=== PATIENT | female | born 1945 | race Caucasian/White ===

== ENCOUNTER 2016-07-16 09:52 | Outpatient (CLI) ==
[2016-07-16 10:25] LABS: BASOPHILS % (AUTO) 0.4 % (0.0-3.0); EOSINOPHILS # (AUTO) 0.1 K/ul (0.0-0.7); EOSINOPHILS % (AUTO) 1.2 % (0.0-7.0); HEMOGLOBIN 12.2 g/dl (12.0-16.0); IMMATURE GRANULOCYTE % (AUTO) 0.5 % (0.0-5.0); LYMPHOCYTES # (AUTO) 1.4 K/uL (0.60-3.4); MEAN CORPUSCULAR HEMOGLOBIN 27.8 pg (27.0-31.0); MEAN CORPUSCULAR VOLUME 84.3 fl (81.0-99.0); MONOCYTES # (AUTO) 0.4 K/uL (0.4-2.0); MONOCYTES % (AUTO) 4.8 (0-10); NEUTROPHILS # (AUTO) 5.7 K/ul (2.0-6.9); NEUTROPHILS % (AUTO) 75.1; PLATELET COUNT 206 10^3/uL (140-440); RED BLOOD COUNT 4.39 10^6/ul (4.20-5.40); WHITE BLOOD COUNT 7.56 K/ul (4.6-10.2)
[2016-07-16 10:29] LABS: BILIRUBIN,URINE Negative (NEGATIVE); KETONES,URINE Negative (NEGATIVE); LEUKOCYTE ESTERASE ,URINE Trace (NEGATIVE); NITRITE,URINE Negative (NEGATIVE); PROTEIN,URINE Negative (NEGATIVE); URINE, BLOOD Negative (NEGATIVE)
[2016-07-16 10:32] LABS: ADD URINE MICROSCOPIC YES
[2016-07-16 10:33] LABS: BACTERIA,URINE TRACE (NOT PRESENT)
[2016-07-16 10:40] LABS: URIC ACID 6.9 mg/dL (2.4-6.0)
[2016-07-16 10:59] LABS: ERYTHROCYTE SEDIMENTATION RATE 16 mm/hr (0-20); ESR INTERNAL QC INTERNAL QC VALID
== END 2016-07-16 09:53 | disposition home or self-care (01) ==
LOC: LAB 09:52
PROVIDERS: ATTEND Podiatrist
DX: E10.9 Type 1 diabetes mellitus without complications (principal); G30.9 Alzheimer's disease, unspecified; F02.80 Dementia in other diseases classified elsewhere, unspecified severity, without behavioral disturbance, psychotic disturbance, mood disturbance, and anxiety
CPT/HCPCS: 36415; 80061; 81001; 82947; 83036; 84450; 84460; 84478; 84550; 85025; 85651

== ENCOUNTER 2017-01-04 10:13 | Emergency (ER) | payer OTHER ==
[2017-01-04] MEDS ORDERED: TETANUS DIPHTHERIA TOXOIDS IM ONE (10:18)
[2017-01-04 10:20] VITALS: BP 155/77; TEMP 98.8; BMI 33.2
--- NOTE | 2017-01-04 10:53 | CT ---
EXAM: CT scan of the head without contrast HISTORY: Head injury TECHNIQUE: Imaging of the head was performed without contrast. 5 mm thin axial images and coronal and sagittal images were provided for interpretation. FINDINGS: Diffuse low density changes are seen throughout the supratentorial white matter. No acut e hemorrhages are seen. There is no mass effect. The basal cisterns are patent. The paranasal sin uses and mastoid air cells are clear. The calvarium appears normal. IMPRESSION: No acute traumatic abnormalities are seen. Chronic small vessel ischemic changes seen within the supratentorial white matter.
--- NOTE | 2017-01-04 11:02 | CT ---
EXAM: CT cervical spine without contrast HISTORY: Neck pain post fall TECHNIQUE: Multi-slice transaxial helical with coronal and sagittal reformatted views. COMPARISON: None FINDINGS: The intervertebral joint spaces are mildly narrowed diffusely. There is minimal anteroli sthesis of C2 on C3 of 1.7 mm. In addition, there is minimal anterolisthesis of C3 on C4 of 1.3 mm. The other cervical vertebrae maintain normal alignment. No acute fractures or lithesis are observed . The prevertebral soft tissues have normal width. The facet alignment is appropriate. No cervical ribs are appreciated. Segmental analysis: C2-C3: No significant disc herniation, central canal stenosis, or neural foramen stenosis. C3-C4: A minimal disc protrusion effaces the thecal sac without central canal or neural foramen sten osis. C4-C5: A minimal disc protrusion effaces the thecal sac. The central canal diameter is maintained. No neural foramen stenosis. C5-C6: A minimal disc protrusion effaces the thecal sac without central canal or neural foramen sten osis. C6-C7: A minimal disc protrusion effaces the thecal sac without central canal or neural foramen sten osis. C7-T1: Normal IMPRESSION: 1. No acute fracture or lithesis. 2. Minimal grade 1 anterolisthesis of C2 on C3 and C3 on C4. 3. No central canal or neural foramen stenosis.
--- NOTE | 2017-01-04 11:04 | ED.PDOC ---
General ED Provider: Dr. TIMUR WILLS-ER Chief Complaint: Head Laceration Stated Complaint: she fell and hurt her head Time Seen by Physician: 10:15 Mode of Arrival: Wheelchair Information Source: Patient, Family Exam Limitations: No limitations [facility] and Triage Documentation Reviewed and Agree: Yes Trauma/Injury Complaint Exam - Trauma Complaint/Exam Location of Pain or Injury: Reports: Scalp Mechanism of Injury: Reports: Fall Onset/Duration: 30 min Symptoms Are: Still present Timing of Treatment: Immediate Initial Severity: Mild Current Severity: Mild Character: Reports: Dull Alleviating: Reports: None Associated Signs and Symptoms: Reports: Bruising, Swelling. Denies: LOC, Confusion, Memory loss, Lethargy, Vomiting, Bleeding, Extremity disuse, Painful respiration, Hoarseness, Dysphagia, Hemoptysis, Significant blood loss : No Penetrating Injury Risk Factors: Reports: None Nexus Low Risk Criteria: No post-midline CS tender Glascow Coma Scale (see protocol): 15 Compartment Syndrome Risk Factors: Present: Pain Trauma Findings: Absent: [place] eyes, Hemotympanum, Nasal deformity, Dental tenderness, Dental injury, Dental malocclusion, Neck tenderness, Neck spasm, SubQ Air, Crepitus, Airway obstructed, Trachea displaced, Labored respirations, Decreased breath sounds, Muffled heart sounds, Weak pulses, Absent pulses, Abdominal distention, Pelvic tenderness, Pelvic instability, Perineal blood, Meatal blood, Abnormal rectal tone, Prostate pos. abnormal, Heme positive, Gross blood, Back tenderness, Back malalignment, Limited ROM, Agitated, Uncooperative Skin Findings: Present: Laceration, Ecchymosis, Hematoma Differential Diagnoses: Abrasion, Hematoma, Laceration Review of Systems - Review Of Systems Constitutional: Reports: No symptoms Eyes: Reports: No symptoms Ears, Nose, Mouth, Throat: Reports: No symptoms Respiratory: Reports: Other Cardiac: Reports: No symptoms GI: Reports: No symptoms : Reports: No symptoms Musculoskeletal: Reports: No symptoms Skin: Reports: No symptoms Neurological: Reports: No symptoms Endocrine: Reports: No symptoms Hematologic/Lymphatic: Reports: No symptoms All Other Systems: Reviewed and Negative Past Medical History - Past Medical History Previously Healthy: Yes Endocrine: Reports: Unknown Cardiovascular: Reports: Unknown Respiratory: Reports: Unknown Hematological: Reports: Unknown Gastrointestinal: Reports: Unknown Genitourinary: Reports: Unknown Neuro/Psych: Reports: Unknown Musculoskeletal: Reports: Unknown Cancer: Reports: Unknown Last Menstrual Period: none - Surgical History General Surgical History: Reports: Unknown - Family History Family History: Reports: Unknown - Social History Smoking Status: Never smoker Hx Substance Use: No Alcohol Screening: None - Immunizations Tetanus Shot up to Date: Yes Physical Exam - Physical Exam Appearance: Well-appearing Pain Distress: Mild Eyes: POLINA, EOMI, Conjunctiva clear ENT: Ears normal, Nose normal, Oropharynx normal Neck: Supple Respiratory: Airway patent, Breath sounds clear, Breath sounds equal, Respirations nonlabored Cardiovascular: RRR, Pulses normal, No rub, No murmur GI/: Soft, Nontender, No masses, Bowel sounds normal, No Organomegaly Musculoskeletal: Normal strength, ROM intact, No edema, No calf tenderness Skin: Warm, Dry, Normal color Neurological: Sensation intact, Motor intact, Reflexes intact, Cranial nerves intact, Alert, Oriented Psychiatric: Affect appropriate, Mood appropriate Interpretation - Radiology Interpretation Radiology Interpretation By: Radiologist Radiology Results: Negative Exam Interpreted: CT Scan Procedures - Laceration/Wound Repair No standard instances Wound Description: Linear Wound Length (cm): 1.5cm vertex of scalp Wound Explored: Clean Wound Irrigated: No Wound Prep: Hibiclens Wound Repaired With: Ludy Number of Halls: 2 Layer Closure?: No Sterile Dressing Applied?: Yes Splint Applied?: No Sling Applied?: No Critical Care Note - Critical Care Note Total Time (mins): 0 Course - Course Orders, Labs, Meds: Orders Category Date Time Status CT CERVICAL SPINE W/O CONTRAST Stat RADS 01/04/17 10:[address] HEAD W/O CONTRAST Stat RADS 01/04/17 10:18 Completed Vital Signs: Temp Pulse Resp BP Pulse Ox 01/04/17 10:13 98.8 F 76 18 155/77 H 98 Departure - Departure Time of Disposition: 11:05 Disposition: HOME SELF-CARE Discharge Problem: Scalp laceration Qualifiers: Encounter type: initial encounter Qualifier Code: (S01.01XA) Laceration without foreign body of scalp, initial encounter Instructions: Laceration (ED), Staple Care (ED) Condition: Good Pt referred to PMD for follow-up: Yes Additional Instructions: wound care--tylenol for pain--ludy out in 5-7 days--return prn Allergies/Adverse Reactions: Allergies No Known Allergies Allergy (Verified 01/04/17 10:20) Home Medications: Ambulatory Orders 1 [Unobtainable] 01/04/17 Disposition Discussed With: Patient, Family
== END 2017-01-04 11:18 | disposition home or self-care (01) ==
LOC: ED 10:13
DX: S01.01XA Laceration without foreign body of scalp, initial encounter (principal); W19.XXXA Unspecified fall, initial encounter
CPT/HCPCS: 99283

== ENCOUNTER 2017-01-16 10:25 | Outpatient (CLI) ==
[2017-01-16 13:16] LABS: BASOPHILS % (AUTO) 0.5 % (0.0-3.0); EOSINOPHILS # (AUTO) 0.1 K/ul (0.0-0.7); EOSINOPHILS % (AUTO) 1.4 % (0.0-7.0); HEMATOCRIT 34.6 % (37.0-47.0); HEMOGLOBIN 11.9 g/dl (12.0-16.0); IMMATURE GRANULOCYTE % (AUTO) 0.4 % (0.0-5.0); LYMPHOCYTES # (AUTO) 1.1 K/uL (0.60-3.4); LYMPHOCYTES % (AUTO) 19.4 (10.0-50.0); MEAN CORPUSCULAR HGB CONC 34.4 (31.8-35.4); MEAN CORPUSCULAR VOLUME 81.4 fl (81.0-99.0); MONOCYTES # (AUTO) 0.4 K/uL (0.4-2.0); MONOCYTES % (AUTO) 7.1 (0-10); NEUTROPHILS % (AUTO) 71.2; PLATELET COUNT 223 10^3/uL (140-440); RED BLOOD COUNT 4.25 10^6/ul (4.20-5.40); WHITE BLOOD COUNT 5.66 K/ul (4.6-10.2)
[2017-01-16 13:46] LABS: ALBUMIN/GLOBULIN RATIO 1.11; ANION GAP 16.9; BILIRUBIN,TOTAL 0.62 mg/dL (0.00-1.20); CALCIUM 10.3 mg/dL (8.2-10.2); CHOL/HDL RATIO 2.3 (4.5-5.5); CREATININE 1.55 mg/dL (0.60-1.30); POTASSIUM 3.9 mmol/L (3.5-5.10); TOTAL PROTEIN 7.6 g/dL (5.8-8.1)
== END 2017-01-16 10:26 | disposition home or self-care (01) ==
LOC: LAB 10:25
PROVIDERS: ATTEND Emergency Medicine
DX: E11.9 Type 2 diabetes mellitus without complications (principal); E78.5 Hyperlipidemia, unspecified; I10 Essential (primary) hypertension
CPT/HCPCS: 36415; 80053; 80061; 83036; 84443; 85025

== ENCOUNTER 2017-06-23 17:08 | Outpatient (CLI) | END 2017-06-23 17:09 | disposition home or self-care (01) | LOC: LAB 17:08 | PROVIDERS: ATTEND Emergency Medicine | DX: E78.5 Hyperlipidemia, unspecified (principal); E11.9 Type 2 diabetes mellitus without complications; G30.9 Alzheimer's disease, unspecified; F02.80 Dementia in other diseases classified elsewhere, unspecified severity, without behavioral disturbance, psychotic disturbance, mood disturbance, and anxiety; I10 Essential (primary) hypertension; Z79.4 Long term (current) use of insulin | CPT/HCPCS: 36415; 80053; 80061; 83036; 84443; 85025 ==

== ENCOUNTER 2017-10-20 15:13 | Inpatient (IN) ==
[2017-10-20 16:03] VITALS: BMI 30.9
[2017-10-20] MEDS ORDERED: TYLENOL PO PRN (16:45)
[2017-10-20] MEDS ORDERED: INSULIN DETEMIR 30 UNIT SQ SCH (17:00)
--- NOTE | 2017-10-20 17:25 | CT ---
EXAM: CT head without contrast HISTORY: Dizziness COMPARISON: CT head from 01/04/2017 TECHNIQUE: Helical axial CT of the head was performed without contrast. Coronal and sagittal reconstr uctions were performed. FINDINGS: Exam is stable. There is no acute intracranial abnormality. There is no hemorrhage, mass, midline wilma ft, abnormal extra-axial fluid collection, hydrocephalus or evolving ischemia. Redemonstrated are alethea ateral areas of low attenuation in the cortex of the anterior frontal lobes a bit more so on the righ t. This extends into the white matter as well. There is extremely advanced calcific atherosclerosis present. There is moderate atrophy and chronic small vessel ischemia in the white matter of both cer ebral hemispheres. Brain parenchyma, ventricles and sulci are otherwise normal. There are no acute calvarial lesions. Visualized orbits and globes are unremarkable. The mastoid ai r cells are fairly well opacified bilaterally. The visualized paranasal sinuses show no air-fluid lev els. IMPRESSION: 1. No acute intervening abnormality. Specifically there is no evolving ischemia or hemorrhage or ma ss. 2. Bifrontal low attenuation most consistent with prior infarcts or prior contusions in the bilatera l frontal lobes. This is stable. 3. Senescent changes as noted. 4. Chronic mastoiditis.
--- NOTE | 2017-10-20 17:34 | DI ---
EXAM: Single-view chest HISTORY: Cough COMPARISON: None. FINDINGS: The heart is normal in size. Atherosclerotic changes are seen involving the aortic arch. The lungs are well expanded and clear bilaterally. IMPRESSION: No evidence of active pulmonary disease
[2017-10-20] MEDS: SODIUM CHLORIDE 1,000 ML IV SCH (18:21)
[2017-10-20] MEDS: COZAAR PO SCH (20:38)
[2017-10-20] MEDS: CARDIZEM PO SCH (20:38)
[2017-10-20] MEDS ORDERED: NON-FORMULARY MEDICATION (Losartan Potassium [Losartan Potassium] 50 MG) PO SCH (21:00)
[2017-10-21] MEDS: HYDROCHLOROTHIAZIDE PO SCH (08:54)
[2017-10-21] MEDS: CARDIZEM PO SCH ×2 (08:54→20:39)
[2017-10-21] MEDS: NAMENDA PO SCH (08:55)
[2017-10-21] MEDS: TRIGLIDE PO SCH (08:55)
[2017-10-21] MEDS: CRESTOR PO SCH (08:55)
[2017-10-21] MEDS: COZAAR PO SCH ×2 (08:55→20:39)
[2017-10-21] MEDS: RIVASTIGMINE TD SCH (08:56)
[2017-10-21] MEDS ORDERED: FENOFIBRATE NANOCRYSTALLIZED 54 MG PO SCH (09:00)
[2017-10-21] MEDS ORDERED: NON-FORMULARY MEDICATION (Hydrochlorothiazide [Hydrochlorothiazide] 12.5 MG) PO SCH (09:00)
[2017-10-21] MEDS ORDERED: LEVEMIR SUBCUT SCH (09:00)
[2017-10-21] MEDS ORDERED: ROSUVASTATIN CALCIUM 20 MG PO SCH (09:00)
--- NOTE | 2017-10-21 11:06 | RS.PTINEVL ---
Subjective - Patient information Date of Evaluation: 10/21/17 Date of Arrival on Unit: 10/20/17 Admitted From:: Home Diagnosis: fall, dizziness, weakness Usual Living Arrangement: with daughter Home Environment: House, Stairs (few), Rail Medical History: CVA/TIA, Diabetes Medications: see chart Subjective Information/ Patient Comments:: pt states that she came in because the doctor wants to check on her legs. pt states she wants to get stronger and return to daughter's home to play with grandkids. - Level of function Prior to this admission, the patient could do the following:: Independent ADL's , Independent Ambulation Abilities prior to this admission: pt amb with rwx at home. Independent with all adl's, did a little cooking. Current Level of Function: Partially Dependent Current Equipment Used at Home: walker, glucometer, shower chair Interventions - Objective Patient Orientation: Person, Place, Time Current Interventions: IV's, Telemetry Range of Motion - ROM Right Upper Extremity AROM: WFL's Left Upper Extremity AROM: WFL's Right Lower Extremity AROM: WFL's Left Lower Extremity AROM: WFL's Muscle Strength - Muscle Strength Right Upper Extremity Strength: Mild Weakness (grossly 4/5) Left Upper Extremity Strength: Mild Weakness (grossly 4/5) Right Lower Extremity Strength: Mild Weakness (hip flex 4-/5, knee flex/ext 4-/5 , ankle DF/PF 3+/5) Left Lower Extremity Strength: Mild Weakness (hip flex 4-/5, knee flex/ext 4-/5 , ankle DF/PF 3+/5) Sensation - Sensation Right Upper Extremity Sensation: Intact/Normal Left Upper Extremity Sensation: Intact/Normal Right Lower Extremity Sensation: Intact/Normal Left Lower Extremity Sensation: Intact/Normal Palpation Palpation Findings: None/Normal Balance - Sitting Balance and Reactions Static Sitting Balance: Good Dynamic Sitting Balance: Fair - Standing Balance and Reactions Static Standing Balance: Fair Dynamic Standing Balance: Poor Standing Equilibrium Reactions: Delayed Left, Delayed Right Standing Protective Reactions: Delayed Left, Delayed Right - Comments Balance Assessment Comments: pt with increased lat sway, internal rotation with LLE Functional Mobility - Bed Mobility Rolling R/L: Supervision Supine to Sit: Supervision - Transfers Sit to Stand: CGA Stand to Sit: CGA - Safety Awareness Safety Awareness: Fair BALDEV INDEX SCORE: n/a Ambulation - Ambulation Assistive Device Used: Rolling Walker Orthotic/Prosthetic Device: No Distance: 100ft Assistance needed with Ambulation: CGA Quality of Ambulation: pt amb CGA x1 +1for IV pole Gait Deviations: Forward posture, Short stride, Deviates from path Ambulation Comments: pt with internal rotation LLE, with pronation B feet. Factors Affecting Ambulation: Decreased Balance, Weakness, Decreased Safety, Limited Endurance Treatment time - Time with patient Total treatment time: 25 Patient Education - Education Patient Education: Home Exercise Program, Education of Plan of Care Teaching Recipient: Patient Teaching Methods: Discussion (discussion regarding POC as well as safety with amb.) Assessment - Assessment Problem List:: Decreased level of function, Requires training/education, Decreased safety/Risk of falls, Weakness Rehab Potential: Good Further Therapy Indicated?: Yes Evaluation Complexity: HISTORY: Medium (DM, CVA, alzheimers), EXAM OF BODY SYSTEMS: Medium (strength, balance, posture, gait), CLINICAL PRESENTATION: Medium (evolving), CLINICAL DECISION MAKING: Medium Short Term Goals GOAL #1: pt independent with rolling and scooting up in bed Goal to be met by: 10/23/17 GOAL #2: pt transfer sup to/from sit to/from stand SBA Goal to be met by: 10/23/17 GOAL #3: pt amb with rwx 125ft with no LOB with SBA Goal to be met by: 10/23/17 [facility] Goals GOAL #1: pt transfer sup to/from sit to/from stand independently Goal to be met by: 10/26/17 GOAL #2: pt amb with rwx 150ft with no LOB with SBA to independent Goal to be met by: 10/26/17 GOAL #3: pt with BLE strength 4 to 4+/5 Goal to be met by: 10/26/17 Plan Plan of Care: Therapeutic EX, Therapeutic Activity Other:: gait training Frequency of Treatment: 1-2 X day, as tolerated Duration of Treatment: 6 days Anticipated Discharge Destination: Home Treatment Diagnosis (ICD 10 Codes): R26.81 balance impaired, R26.2 difficulty walking Has the Physician been added for Co-signature?: Yes
--- NOTE | 2017-10-21 11:20 | RS.OTINEVL ---
Subjective - Patient information Date of Evaluation: 10/21/17 Date of Arrival on Unit: 10/20/17 Admitted From:: Home Usual Living Arrangement: with daughter Living Arrangement Comments: Pt lives at home with her daughter. Pt uses a RW due to impaired balance and gait. Home Environment: House, Stairs (few), Rail Medical History: CVA/TIA, Diabetes Medical History Comments:: Glaucoma, falls, dizzy, alzheimers, kidney disease, gall bladder, hysterectomy, HTN, hypercholesterolemia, DMII Medications: see chart - Level of function Prior to this admission, the patient could do the following:: Independent ADL's , Independent Ambulation Abilities prior to this admission: Pt was living at her daughter's house, pt dresses herself. Pt does not drive. Pt does not cook anymore. Current Level of Function: Partially Dependent Current Equipment Used at Home: walker, glucometer, shower chair Functional Mobility BALDEV INDEX SCORE: . Additional Treatment Performed - Additional units charged ADL: 15 - Time with patient Total treatment time: 22 Activities Patient Interests:: Watching Television Patient Education Patient Education: Home Safety, Education of Plan of Care Teaching Recipient: Patient Teaching Methods: Discussion Assessment Problem List:: Decreased level of function, Requires training/education, Decreased safety/Risk of falls, Weakness Rehab Potential: Good Further Therapy Indicated?: Yes Evaluation Complexity: HISTORY: Low, EXAM OF BODY SYSTEMS: Low, CLINICAL DECISION MAKING: Low Short Term Goals - Goals GOAL 1: Pt to increase dyn. std. balance to F-/ G +. Goal to be met by: 10/28/17 GOAL 2: Pt to increase BUE strenght to 4+/5. Goal to be met by: 10/28/17 GOAL 3: Pt to increase activity tolerance to 15 minutes with rests PRN. Goal to be met by: 10/28/17 GOAL 4: Pt to be independent with home exercise program. Goal to be met by: 10/28/17 City [employer]anner Goals GOAL 1: Pt to increase dyn. std. balance to G. Goal to be met by: 11/04/17 GOAL 2: Pt to increase BUE strength to 5/5. Goal to be met by: 11/04/17 GOAL 3: Pt to increase activity tolerance to 20 minutes with rests PRN. Goal to be met by: 11/04/17 Plan Plan of Care: Therapeutic EX, Neuromuscular Re-Educ, Therapeutic Activity, Self- Care/Home Management Frequency of Treatment: 1-2 X day, as tolerated Duration of Treatment: 2 Weeks Anticipated Discharge Destination: Home Treatment Diagnosis (ICD 10 Codes): M82.81 Muscle weakness Has the Physician been added for Co-signature?: Yes
[2017-10-21] MEDS: SODIUM CHLORIDE 1,000 ML IV SCH (18:23)
[2017-10-21] MEDS: PROTONIX PO SCH (18:28)
--- NOTE | 2017-10-21 20:20 | CT ---
EXAM: CT scan abdomen pelvis without contrast HISTORY: Abdominal pain COMPARISON: None. FINDINGS: Contiguous axial images obtained from lung bases to the symphysis pubis without contrast u tilizing 3-mm collimation. Sagittal and coronal reconstructions were imaged and reviewed.. There is a millimeter pericardial effusion. Visualized lung bases are clear. There has been prior cholecyst ectomy. The liver pancreas spleen and adrenal glands have normal unenhanced CT appearance. Multiple simple cysts are seen in both kidneys. There is a duplicated collecting system on the left. Atheros clerotic changes are seen involving the aorta without aneurysm formation. There is 2.6 centimeter lef t adnexal cyst. There is no free fluid IMPRESSION: Small pericardial effusion. Prior cholecystectomy. ASVD without aneurysm. Simple bilateral renal cysts Simple left adnexal cyst without free fluid.
[2017-10-22] MEDS: PROTONIX PO SCH ×2 (05:35→16:49)
[2017-10-22] MEDS: HYDROCHLOROTHIAZIDE PO SCH (08:54)
[2017-10-22] MEDS: CARDIZEM PO SCH ×2 (08:54→20:22)
[2017-10-22] MEDS: COZAAR PO SCH ×2 (08:55→20:22)
[2017-10-22] MEDS: CRESTOR PO SCH (08:56)
[2017-10-22] MEDS: NAMENDA PO SCH (08:56)
[2017-10-22] MEDS: TRIGLIDE PO SCH (08:56)
[2017-10-22] MEDS: RIVASTIGMINE TD SCH (08:57)
[2017-10-22] MEDS: LEVEMIR SUBCUT SCH (09:43)
--- NOTE | 2017-10-22 13:19 | US ---
EXAM: Bilateral carotid artery Doppler History: Dizziness. Technique: Multiple sonographic images through the bilateral internal carotid arteries were obtained . Color duplex Doppler was used to interrogate vascular flow. Findings: The right ICA peak systolic velocity is within normal limits measuring 60 cm/sec. The right ICA/cca P SV ratio is normal at 0.80. The right vertebral artery is patent and demonstrates antegrade flow. M ild to moderate heterogeneous plaque within the right carotid bulb and right internal carotid artery. The left ICA peak systolic velocity is within normal limits measuring 80 cm/sec. The left ICA/cca PS V ratio is normal at 1.50. The left vertebral artery is patent and demonstrates antegrade flow. Gra y scale images demonstrate mild plaque buildup within the left internal carotid artery. Impression: No significant hemodynamic stenosis of the bilateral internal carotid arteries.
[2017-10-22] MEDS: SODIUM CHLORIDE 1,000 ML IV SCH (18:24)
[2017-10-23] MEDS: PROTONIX PO SCH (05:30)
[2017-10-23] MEDS: CARDIZEM PO SCH (09:11)
[2017-10-23] MEDS: TRIGLIDE PO SCH (09:11)
[2017-10-23] MEDS: HYDROCHLOROTHIAZIDE PO SCH (09:11)
[2017-10-23] MEDS: NAMENDA PO SCH (09:11)
[2017-10-23] MEDS: CRESTOR PO SCH (09:11)
[2017-10-23] MEDS: COZAAR PO SCH (09:11)
[2017-10-23] MEDS: LEVEMIR SUBCUT SCH (09:12)
[2017-10-23] MEDS: RIVASTIGMINE TD SCH (10:00)
--- NOTE | 2017-10-23 10:06 | CM.DICTOOL ---
ADMISSION: 10/20/17 15:13 DISCHARGE: OCTOBER 23, 2017 DATE OF SERVICE: 10/23/17 FINAL DIAGNOSIS DIZZINESS S/P FALL LEG EDEMA HYPERTENSION DIABETES MELLITUS, TYPE 2 ANEMIA ALZHEIMERS DEMENTIA, EARLY ONSET CVA, BILATERAL FRONTAL LOBES PER HISTORY CHRONIC MASTOIDITIS CHOLECYSTECTOMY HYSTERECTOMY LAST VITALS Temp Pulse Resp BP Pulse Ox 98.1 F 63 16 105/62 97 10/23/17 05:31 10/23/17 05:31 10/23/17 05:31 10/23/17 05:31 10/23/17 05:31 ACTIVE MEDICATIONS Diltiazem HCl (Cardizem) 30 mg PO BID [facility] Last Admin: 10/22/17 20:22 Dose: 30 mg Fenofibrate (Triglide) 54 mg PO DAILY [facility] Last Admin: 10/22/17 08:56 Dose: 54 mg Hydrochlorothiazide (Hydrochlorothiazide) 12.5 mg PO DAILY [facility] Last Admin: 10/22/17 08:54 Dose: 12.5 mg Insulin Detemir (Levemir) 25 unit SUBCUT DAILY [facility] Last Admin: 10/22/17 09:43 Dose: 25 unit Losartan Potassium (Cozaar) 50 mg PO BID [facility] Last Admin: 10/22/17 20:22 Dose: 50 mg Memantine (Namenda) 10 mg PO DAILY [facility] Last Admin: 10/22/17 08:56 Dose: 10 mg Non-Formulary Medication (Rivastigmine [Exelon]) 1 each TD DAILY [facility] Last Admin: 10/22/17 08:57 Dose: 1 each Rosuvastatin Calcium (Crestor) 20 mg PO DAILY [facility] Last Admin: 10/22/17 08:56 Dose: 20 mg ALLERGIES No Known Allergies Allergy (Verified 01/04/17 10:20) NEW PRESCRIPTIONS: NONE SMOKING: NOT APPLICABLE DISEASE SPECIFIC EDUCATION: ACTIVITY MEDICATION CHANGE LAB REVIEW: 10/22/17 04:30 10/22/17 04:30 10/22/17 10:15: Stl Occult Blood (IFOB) Negative 10/21/17 17:50: Transferrin 271 PLAN: DISCHARGE TO [facility] DIET: CONSISTENT CARBOHYDRATES ACTIVITY: UP TO DINING ROOM FOR MEALS ORDERS: PHYSICAL THERAPY EVALUATION OCCUPATIONAL THERAPY EVALUATION ACCU-CHECKS TWICE DAILY (MORNING AND AT SUPPER) CBC, CMP IN 2 WEEKS AND THEN PER MD MAY PARTICIPATE IN ACTIVITIES VITAL SIGNS DAILY FOR 1 WEEK, THEN WEEKLY WEIGHT WEEKLY MS. MICHAELS IS ALERT AND ORIENTED X 3. SHE IS PLEASANT AND COOPERATIVE WITH NURSING STAFF AND CARE. SHE REQUIRES ASSISTANCE WITH TRANSFERS FROM THE BED TO THE CHAIR AND ASSISTANCE OF 1 STAFF MEMBER WITH AMBULATION. SHE USES A ROLLING WALKER FOR USE WITH AMBULATION. HER GAIT IS UNSTEADY AT TIMES. SHE IS CONTINENT OF URINE, BUT WEARS DEPENDS DUE TO DRIBBLING AND STRESS INCONTINENCE. SKIN IS INTACT AND FREE OF DECUBITUS ULCERS. SANDY WOODS MD
[2017-10-23 10:31] VITALS: BP 111/59; TEMP 98.5
--- NOTE | 2017-11-05 14:18 | PN ---
DATE OF SERVICE: 10/21/17 SUBJECTIVE: The patient was admitted from the office for the dizziness and recurrent falls and worsening leg edema. CT of the head is done today and did not show any acute stroke. The patient is still weak and tired with dizziness with the movements of the head. REVIEW OF SYSTEMS: CONSTITUTIONAL: No fever, no chills. HEENT: Normal. ENDOCRINE: No weight gain, no weight loss. CVS: No angina symptoms. No CHF symptoms. No palpitations. No atypical chest pain for CAD. No shortness of breath. No PND, no orthopnea. RESPIRATORY: No cough, no hemoptysis. GI: No nausea, no vomiting. No abdominal pain. : No hematuria. No polyuria. MUSCULOSKELETAL: No joint swelling. PSYCHIATRIC: Not anxious. No depression. No suicidal thoughts. No homicidal thoughts. SKIN: Intact. No rash. PHYSICAL EXAMINATION: V/S: Blood pressures 121/65, respiratory rate 16, heart rate 56, temperature 97.8 with saturation 100%. HEENT: Normocephalic, atraumatic. Mucosa dry. Pallor positive. No icterus. NECK: Supple. No JVD, no carotid bruit. No lymphadenopathy. LUNGS: Clear to auscultation. No rales or rhonchi. HEART: S1, S2 normal. No S3. No murmur, gallop or regurgitation. ABDOMEN: Soft, nontender. Bowel sounds active. No rigidity. No rebound or guarding. No CVA tenderness. EXTREMITIES: No cyanosis, clubbing. 1+ edema. MUSCULOSKELETAL: No joint swelling. NEUROLOGIC: Awake, alert, oriented times three. No focal deficit. LYMPHATIC: No lymph nodes palpable. SKIN: Intact. LABS: Sodium 138, potassium 4.1, chloride 107, bicarb 21, BUN 31, creatinine 1.54, glucose 78, WBC 6.38, hgb 10.5, hct 32.1, plt count 143. U/A positive for the leukocyte esterase. CT of the head is negative for the stroke. ASSESSMENT: 1. Dizziness 2. Recurrent falls 3. Hypertension 4. Dyslipidemia 5. Diabetes Mellitus 6. Osteoarthritis 7. Alzheimer's Dementia PLAN: 1. Carotid ultrasound 2. CT of abdomen and pelvis for constipation 3. Anemia evaluation TIME SPENT: More than 35 minutes MTDD
--- NOTE | 2017-12-16 13:54 | PN ---
DATE OF SERVICE: 10/22/17 SUBJECTIVE: The patient was admitted with dizziness and CT scan of the head is negative for the dizziness. Inability to walk, frequent falls. She is feeling some better. She visited with her great granddaughter this morning. Walked in the hallway and feeling better. REVIEW OF SYSTEMS: CONSTITUTIONAL: No fever, no chills. HEENT: Normal. ENDOCRINE: No weight gain, no weight loss. CVS: No angina symptoms. No CHF symptoms. No palpitations. No atypical chest pain for CAD. No shortness of breath. No PND, no orthopnea. RESPIRATORY: No cough, no hemoptysis. GI: No nausea, no vomiting. No abdominal pain. : No hematuria. No polyuria. MUSCULOSKELETAL: No joint swelling. PSYCHIATRIC: Not anxious. No depression. No suicidal thoughts. No homicidal thoughts. SKIN: Intact. No rash. PHYSICAL EXAMINATION: V/S:Blood pressure 128/66, respiratory rate 14, heart rate 63, temperature 98.5 with saturation 100%. HEENT: Normocephalic, atraumatic. Mucosa dry. Pallor positive. No icterus. NECK: Supple. No JVD, no carotid bruit. No lymphadenopathy. LUNGS: Decreased and clear to auscultation. No rales or rhonchi. HEART: S1, S2 normal. No S3. No murmur, gallop or regurgitation. ABDOMEN: Soft, nontender. Bowel sounds active. No rigidity. No rebound or guarding. No CVA tenderness. EXTREMITIES: No cyanosis, clubbing. 1+ edema. MUSCULOSKELETAL: No joint swelling. NEUROLOGIC: Awake, alert, oriented times three. No focal deficit. LYMPHATIC: No lymph nodes palpable. SKIN: Intact. LABS: Sodium 138, potassium 4.3, chloride 108, bicarb 21, BUN 37, creatinine 1.67, glucose 102, WBC 6.20, hgb 10.2, hct 31.2, plt count 150. ASSESSMENT: 1. Dizziness 2. Status post fall 3. Leg edema 4. Hypertension 5. Diabetes 6. Anemia 7. Alzheimer's dementia 8. Cholecystectomy 9. Hysterectomy PLAN: 1. Continue the telemetry 2. Accu-checks with coverage 3. PT/OT consult 4. Carotid scan. TIME SPENT: More than 35 minutes MTDD
--- NOTE | 2017-12-17 11:51 | DS ---
DATE OF SERVICE: 10/23/17 FINAL DIAGNOSIS: 1. Dizziness 2. Status post fall 3. Leg edema 4. Hypertension 5. Diabetes Mellitus, type 2 6. Anemia 7. Alzheimer's Dementia, Early onset 8. CVA, Bilateral frontal lobes per history 9. Chronic Mastoiditis 10.Cholecystectomy 11.Hysterectomy LAST VITALS: Temperature 98.1, pulse 63, respiratory rate 16, blood pressure 105/62 and pulse ox 97%. DISCHARGE INSTRUCTIONS: Discharge to [facility]. Physical therapy evaluation. Occupational therapy evaluation. Accu-checks twice daily (morning and at supper) . CBC, CMP in 2 weeks, then weekly. May participate in activities. Vital signs daily for one week, then weekly. Weight weekly. MEDICATIONS AT DISCHARGE: Cardizem Triglide Hydrochlorothiazide Levemir Cozaar Namenda Rivastigmine Crestor ALLERGIES: None NEW PRESCRIPTIONS: None DIET INSTRUCTIONS: Consistent Carbohydrates ACTIVITY: UP to dining room for meals. SMOKING: N/A DISEASE SPECIFIC EDUCATION: Activity Medication change HOSPITAL COURSE: The patient's daughter brought the patient to the office as the patient been falling down, worsening of the shortness of breath, leg edema and not able to take care of herself. She was admitted to the hospital. Hgb was 11.1, BUN 31, creatinine 1.54. Urine positive for the leukocyte esterase. CT of head negative. Chest x-ray was negative. Admitted to the hospital and started on the IV fluids and Accu-checks with coverage was done. CT abdomen showed the small pericardial effusion, prior cholecystectomy and simply bilateral renal cyst. Carotid ultrasound done no significant hemodynamic stenosis or significant lesion were seen. CT head, no stroke. Still having difficulty with ambulation and walking. Evaluated the patient for the jail placement, been accepted and the patient being transferred to the jail. TIME SPENT: MORE THAN 65 MINUTES MTDD
== END 2017-10-23 13:35 | DRG 149 ==
LOC: MEDSURG A 15:13
PROVIDERS: ADMIT Emergency Medicine; ATTEND Emergency Medicine
DX: R42 Dizziness and giddiness (principal); I31.3 Pericardial effusion (noninflammatory); Z91.81 History of falling; W19.XXXD Unspecified fall, subsequent encounter; R60.0 Localized edema; I10 Essential (primary) hypertension; E11.9 Type 2 diabetes mellitus without complications; Z79.4 Long term (current) use of insulin; D64.9 Anemia, unspecified; G30.0 Alzheimer's disease with early onset; F02.80 Dementia in other diseases classified elsewhere, unspecified severity, without behavioral disturbance, psychotic disturbance, mood disturbance, and anxiety; Z86.73 Personal history of transient ischemic attack (TIA), and cerebral infarction without residual deficits; H70.10 Chronic mastoiditis, unspecified ear; N28.1 Cyst of kidney, acquired; R26.2 Difficulty in walking, not elsewhere classified; E78.5 Hyperlipidemia, unspecified
CPT/HCPCS: 36415; 80053; 81001; 82272; 82550; 82607; 82728; 82746; 82962; 83036; 83540; 83550; 84466; 84484; 85025; 85045; 93005; 93010; 99223; 99233; 99239

== ENCOUNTER 2021-03-18 13:06 | Inpatient (IN) ==
--- NOTE | 2021-03-18 14:06 | ED.PDOC ---
General ED Provider: Dr. YUMIKO SANTANA MD Chief Complaint: Extremity Pain/Injury Stated Complaint: right leg pain Time Seen by Provider: 03/18/21 14:03 Mode of Arrival: Ambulance Information Source: Patient Primary Care Provider: LORRAINE MEDINA Nursing and Triage Documentation Reviewed and Agree: Yes Does patient meet sepsis criteria?: No System Inflammatory Response Syndrome: Not Applicable Sepsis Protocol: For patient's 13 years and over: Temp is 96.8 and below OR 101 and greater Pulse >90 BPM Resp >20/minute Acutely Altered Mental Status Are patient's symptoms suggestive of a new infection, such as: -Pneumonia -Skin, Soft Tissue -Endocarditis -UTI -Bone, Joint Infection -Implantable Device -Acute Abdominal Infection -Wound Infection -Meningitis -Blood Stream Catheter Infection -Unknown Musculoskeletal Complaint Exam Lower Extremity Complaint/Exam Location of Pain: Reports Right and Leg Mechanism of Injury: Reports Trauma and Other (fall) Onset/Duration: ~1 week ago Symptoms Are: Worse Onset of Pain: Reports Immediate Initial Severity: Mild Current Severity: Moderate Location: Reports Diffuse Character: Reports Throbbing Alleviating: Reports None Aggravating: Reports None Able to Bear Weight: No Associated Signs and Symptoms: Reports Swelling and Weakness Related History: Denies Similar episode DVT Risk Factors: Reports Malignancy (skin cancer, resolved (excised, radiation therapy) within the past year) and Recent bedrest; Denies , Oral contraceptives, Estrogen, Smoking, Prior DVT, Prior PE, Recent surgery, Recent trauma or Recent travel Septic Arthritis Risk Factors: Reports None Related Surgical History: Reports None Lower Extremity Findings: Present Swelling Lower Extremities Picture: 1. pain Differential Diagnoses: Compartment Syndrome, Contusion, DVT, Phlebitis, Fractu re, Hematoma, Osteomyellitis, Sciatica, Strain and Other Review of Systems Review Of Systems Constitutional: Reports Malaise and Weakness Musculoskeletal: Reports Other (right leg neuropathic pain) Neurological: Reports Cognitive dysfunction All Other Systems: Reviewed and Negative [facility] Medical History Cerebrovascular accident Diabetes mellitus Hypertension Social History Smoking and tobacco status: Never smoker Surgical History Status post cholecystectomy Status post hysterectomy Female Reproductive History Menstrual Hx Hysterectomy: Yes Physical Exam Physical Exam Appearance: Reports Ill-appearing and Obese Ill-appearing: Mild Pain Distress: Moderate Eyes: Reports POLINA, EOMI and Conjunctiva clear ENT: Reports Nose normal Neck: Nonsupple (age-appropriate) Respiratory: Reports Airway patent, Breath sounds clear and Breath sounds equal Cardiovascular: Reports RRR GI/: Reports Soft, Nontender and Bowel sounds normal Musculoskeletal: Reports Limited strength Skin: Reports Warm, Dry and Normal color Neurological: Reports Cranial nerves intact Psychiatric: Reports Affect appropriate and Mood appropriate Critical Care Note Critical Care Note Total Critical Care Time (mins): 0 Course Course Hematology/Chemistry: 03/19/21 04:44 03/19/21 04:44 Orders, Labs, Meds: Lab Review 03/18/21 03/18/21 14:15 15:15 Urine Color Yellow Urine Clarity Cloudy Urine pH 7.0 Ur Specific Cougar 1.020 Urine Protein 2+ H Urine Glucose (UA) Negative Urine Ketones Negative Urine Blood Trace-lysed Urine Nitrite Positive H Urine Bilirubin Negative Urine Urobilinogen 0.2 Ur Leukocyte Esterase Trace H Urine Microscopic WBC Tntc Ur Squamous Epith Cells Not present Urine Bacteria 3+ Adenovirus (PCR) Not detected B. pertussis DNA (PCR) Not detected B.parapertussis DNA PCR Not detected C. pneumoniae DNA (PCR) Not detected Coronavirus OC43 (PCR) Not detected Coronavirus HKU1 (PCR) Not detected Coronavirus 229E (PCR) Not detected Coronavirus NL63 (PCR) Not detected Human Metapneumovir PCR Not detected Influenza Type A (PCR) Not detected Influenza B (RT-PCR) Not detected M. pneumoniae (PCR) Not detected Parainfluenza 1 (PCR) Not detected Parainfluenza 2 (PCR) Not detected Parainfluenza 3 (PCR) Not detected Parainfluenza 4 (PCR) Not detected RSV (PCR) Not detected Entero/Rhino (PCR) Not detected SARS-CoV-2 (PCR) Not detected Orders Category Date Time Status RESPIRATORY PANEL 2.1 (PCR) Stat LAB 03/18/21 15:15 Completed URINALYSIS C & S IF INDICATED Stat LAB 03/18/21 14:15 Completed URINE CULTURE Stat LAB 03/18/21 14:15 Received Ceftriaxone/D5w 1 gm Premix [Rocephin 1 gm/50 ml D5w] MEDS 03/18/21 15:42 Discontinued 1 gm in 50 ml IV ONCE Clonidine HCl [Catapres] MEDS 03/18/21 15:26 Discontinued 0.2 mg PO ONCE ONE FEMUR, RIGHT 2 VIEWS Stat RADS 03/18/21 14:21 Completed Medications Generic Name Dose Route Start Last Admin Trade Name Rohan PRN Reason Stop Dose Admin Acetaminophen 650 mg 03/18/21 20:59 Acetaminophen 325 Mg Tablet PO QID PRN Pain Aspirin 81 mg 03/19/21 08:30 Aspirin 81 Mg Tab.Chew PO DAILYWM ANTWAN Carvedilol 6.25 mg 03/19/21 08:30 Carvedilol 6.25 Mg Tablet PO BIDWM ANTWAN Sodium Chloride 1,000 mls @ 75 mls/hr 03/18/21 18:00 03/19/21 06:38 Sodium Chloride IV 75 mls/hr .[id number] ANTWAN Administration CEFTRIAXONE/D5W 1 GM PREMIX 1 gm in 50 mls @ 75 mls/hr 03/19/21 09:00 Rocephin 1 Gm/50 Ml D5w IV 03/22/21 08:59 DAILY [facility] Insulin Human Regular 0 unit 03/18/21 17:47 03/18/21 21:06 Insulin Regular, Human 100 Unit/Ml (3ml) Vial SUBCUT 4 unit PRN PRN Administration Hyperglycemia Protocol Memantine 10 mg 03/18/21 21:00 03/18/21 21:53 Memantine Hcl 10 Mg Tablet PO 10 mg BEDTIME ANTWAN Administration Ondansetron HCl 8 mg 03/18/21 21:30 Ondansetron Hcl 4 Mg Tablet PO Q8H PRN Nausea / Vomiting Potassium Chloride 20 meq 03/20/21 09:00 Potassium Chloride 20 Meq Tab PO EVERY OTHER DAY ANTWAN Rosuvastatin Calcium 20 mg 03/19/21 09:00 Rosuvastatin Calcium 10 Mg Tablet PO DAILY ANTWAN Torsemide 20 mg 03/19/21 09:00 Torsemide 20 Mg Tablet PO DAILY ANTWAN Discontinued Medications Generic Name Dose Route Start Last Admin Trade Name Rubénq PRN Reason Stop Dose Admin Clonidine 0.2 mg 03/18/21 15:26 03/18/21 15:58 Clonidine Hcl 0.1 Mg Tablet PO 03/18/21 15:27 0.2 mg ONCE ONE Administration CEFTRIAXONE/D5W 1 GM PREMIX 1 gm in 50 mls @ 75 mls/hr 03/18/21 15:42 03/18/21 15:59 Rocephin 1 Gm/50 Ml D5w IV 03/18/21 16:21 75 mls/hr ONCE ONE Administration Ondansetron HCl 4 mg 03/18/21 21:00 03/18/21 21:55 Ondansetron Hcl 4 Mg Tablet PO Not Given Q8H ANTWAN Patient was here Thursday with a similar complaint. She was sent home via her daughter's POV. When she got to the Assisted Living Facility, she was unable to exit the vehicle. They refused readmission because as an LONGTERM, the patient is required to be ambulatory. Her daughter brought the patient back to her home f or the weekend. The patient continues to complain of inability to stand or ambulate, so she was brought here for evaluation. Her description of her complaint sounds most consistent with a neuropathy (burning pain radiating down the leg). Radiograph posted, negative for fracture. Her UA was strongly positive for UTI (LE +, Nitrite +). Her BP was quite high at times while in the ED. She was given PO Clonidine, with clinical response noted. The decision was made to admit for UTI with PT to evaluate/treat. Treatment might well cover 3 days, qualifying her for NH placement. Patient was in good condition when transported from the ED to the medical floor. Vital Signs: Temp Pulse Resp BP Pulse Ox 03/18/21 13:08 97.2 F L 70 18 156/71 H 96 Discharge Plan Discharge Patient Disposition: ADMITTED INPATIENT Discharge Problem: Weakness generalized, Acute UTI, Inability to walk, Neuropathy ED Provider: YUMIKO SANTANA Condition: Stable Physician Progress Note: []
[2021-03-18 14:24] LABS: BILIRUBIN,URINE Negative (NEGATIVE); CLARITY,URINE Cloudy (CLEAR); COLOR,URINE Yellow (YELLOW); GLUCOSE, URINE (UA) Negative (NEGATIVE); KETONES,URINE Negative (NEGATIVE); LEUKOCYTE ESTERASE ,URINE Trace (NEGATIVE); NITRITE,URINE Positive (NEGATIVE); PROTEIN,URINE 2+ (NEGATIVE); URINE, BLOOD Trace-lysed (NEGATIVE); UROBILINOGEN,URINE 0.2 (0.2)
[2021-03-18 14:30] LABS: SQUAMOUS EPITHELIAL CELL,UR NOT PRESENT (0-5)
[2021-03-18 14:31] LABS: BACTERIA,URINE 3+ (NOT PRESENT); URINE WBC, MICROSCOPIC TNTC (0-2)
--- NOTE | 2021-03-18 14:54 | DI ---
EXAM: Right femur, two-view HISTORY: Leg pain COMPARISON: None FINDINGS: Osseous detail limited by patient body habitus. Mild osteoarthritis of the hip. Moderate osteoarthritis of the knee with medial predominance. No fracture dislocation identified. Possible knee joint effusion. Atherosclerotic vascular calcification. IMPERSSION: 1. No fracture or dislocation identified. 2. Osteoarthritis 3. Possible knee joint effusion.
[2021-03-18] MEDS ORDERED: LIDOCAINE HCL 1% SDV IM STA (15:03)
[2021-03-18] MEDS ORDERED: ROCEPHIN 1 GM VIAL IM ONE (15:03)
[2021-03-18 15:18] LABS: BORDETELLA PARAPERTUSSIS (PCR) NOT DETECTED (NOT DETECT); BORDETELLA PERTUSSIS (PCR) NOT DETECTED (NOT DETECT); CHLAMYDIA PNEUMONIAE (PCR) NOT DETECTED (NOT DETECT); CORONAVIRUS 229E (PCR) NOT DETECTED (NOT DETECT); CORONAVIRUS HKU1 (PCR) NOT DETECTED (NOT DETECT); CORONAVIRUS NL63 (PCR) NOT DETECTED (NOT DETECT); CORONAVIRUS OC43 (PCR) NOT DETECTED (NOT DETECT); HUMAN METAPNEUMOVIRUS (PCR) NOT DETECTED (NOT DETECT); HUMAN RHINOVIRUS/ENTEROV (PCR) NOT DETECTED (NOT DETECT); INFLUENZA B (PCR) NOT DETECTED (NOT DETECT); MYCOPLASMA PNEUMONIAE (PCR) NOT DETECTED (NOT DETECT); PARAINFLUENZA VIRUS 1 (PCR) NOT DETECTED (NOT DETECT); PARAINFLUENZA VIRUS 2 (PCR) NOT DETECTED (NOT DETECT); PARAINFLUENZA VIRUS 3 (PCR) NOT DETECTED (NOT DETECT); PARAINFLUENZA VIRUS 4 (PCR) NOT DETECTED (NOT DETECT); RESPIRATORY SYNCYTIAL V (PCR) NOT DETECTED (NOT DETECT); SARS_COV_2 (PCR) NOT DETECTED (NOT DETECT)
[2021-03-18] MEDS ORDERED: CATAPRES PO ONE (15:26)
[2021-03-18] MEDS ORDERED: ROCEPHIN 1 GM/50 ML D5W 1 GM/50 ML BAG IV ONE (15:42)
[2021-03-18 16:07] LABS: ADENOVIRUS (PCR) NOT DETECTED (NOT DETECT)
[2021-03-18 18:48] VITALS: BMI 42.4
[2021-03-18] MEDS: SODIUM CHLORIDE 1,000 ML IV SCH (19:17)
[2021-03-18] MEDS ORDERED: ZOFRAN TAB PO SCH ×2 (21:00)
[2021-03-18] MEDS: HUMULIN R SUBCUT PRN (21:06)
[2021-03-18] MEDS ORDERED: ZOFRAN TAB PO PRN (21:30)
[2021-03-18] MEDS: NAMENDA PO SCH (21:53)
[2021-03-19 05:22] LABS: BASOPHILS % (AUTO) 0.2 % (0.0-3.0); EOSINOPHILS # (AUTO) 0.1 K/ul (0.0-0.7); EOSINOPHILS % (AUTO) 1.1 % (0.0-7.0); HEMATOCRIT 33.7 % (37.0-47.0); HEMOGLOBIN 10.5 g/dl (12.0-16.0); IMMATURE GRANULOCYTE % (AUTO) 0.2 % (0.0-5.0); LYMPHOCYTES # (AUTO) 2.2 K/uL (0.60-3.4); LYMPHOCYTES % (AUTO) 25.7 (10.0-50.0); MEAN CORPUSCULAR HEMOGLOBIN 27.1 pg (27.0-31.0); MEAN CORPUSCULAR HGB CONC 31.2 (31.8-35.4); MEAN CORPUSCULAR VOLUME 86.9 fl (81.0-99.0); MONOCYTES # (AUTO) 0.9 K/uL (0.4-2.0); MONOCYTES % (AUTO) 10.8 (0-10); NEUTROPHILS # (AUTO) 5.2 K/ul (2.0-6.9); PLATELET COUNT 221 10^3/uL (140-440); RED BLOOD COUNT 3.88 10^6/ul (4.20-5.40); WHITE BLOOD COUNT 8.37 K/ul (4.6-10.2)
[2021-03-19 05:36] LABS: BLOOD UREA NITROGEN 35.1 mg/dL (7-17); CALCIUM 8.41 mg/dL (8.4-10.2); CARBON DIOXIDE 20.1 mmol/L (22-30.0); CHLORIDE 106.3 mmol/L (98-107); CREATININE 1.56 mg/dL (0.60-1.30); GLUCOSE 146.1 mg/dL (74-106); POTASSIUM 4.49 mmol/L (3.5-5.1); SODIUM 135.7 mmol/L (134.5-145)
[2021-03-19] MEDS: SODIUM CHLORIDE 1,000 ML IV SCH ×2 (06:38→22:20)
[2021-03-19] MEDS: DEMADEX PO SCH (08:56)
[2021-03-19] MEDS: CRESTOR PO SCH (08:56)
[2021-03-19] MEDS: COREG PO SCH ×2 (08:57→16:56)
[2021-03-19] MEDS: ROCEPHIN 1 GM/50 ML D5W 1 GM/50 ML BAG IV SCH (08:57)
[2021-03-19] MEDS: ASPIRIN CHEWABLE PO SCH (08:57)
--- NOTE | 2021-03-19 11:04 | DI ---
EXAM: Right lower leg, two-view HISTORY: External rotation COMPARISON: None FINDINGS: No fracture or dislocation. Osteoarthritis about the knee with medial predominance. Mode rate plantar calcaneal spur. Atherosclerotic vascular calcification. Subcutaneous edema suggested. IMPERSSION: 1. No fracture or dislocation. 2. Osteoarthritis of the knee. 3. Calcaneal spurring. 4. Subcutaneous edema suggested.
--- NOTE | 2021-03-19 11:11 | CT ---
EXAM: CT pelvis without contrast HISTORY: External rotation of right leg COMPARISON: None TECHNIQUE: CT pelvis performed without intravenous contrast. Coronal and sagittal reformatted image s obtained. FINDINGS: Sacroiliac joints intact with mild to moderate degenerative change. No fracture or disloc ation. Mild narrowing right and left hip joint. Degenerative change about the pubic symphysis.. Ath erosclerotic vascular calcification. Left adnexal cystic lesion measuring 2.7 cm and similar to CT a bdomen pelvis 10/21/2017 IMPRESSION: 1. No fracture or dislocation. 2. Degenerative changes as described. 3. 2.7 cm left adnexal cystic lesion, similar to 2018. 4. Atherosclerosis. All CT scans are performed using dose optimization techniques as appropriate to the performed exam an d include at least one of the following: Automated exposure control, adjustment of the mA and/or kV according t o size, and the use of iterative reconstruction technique.
--- NOTE | 2021-03-19 11:15 | CT ---
EXAM: CT lumbar spine without contrast. HISTORY: Right leg external rotation and shortening. COMPARISON: None. TECHNIQUE: Multiple axial images of the lumbar spine were obtained without intravenous contrast. Im ages were reformatted in the sagittal and coronal planes. FINDINGS: Mild left convex curvature centered near L2-3. Anterolisthesis L4 on L5 by 0.3 cm. Align ment otherwise normal. Moderate loss of disc height along the right side of L2-3. Disc heights othe rwise normal. Vertebral body heights maintained. There is no acute fracture. T12-L1: No neural compromise. L1-2: Neural compromise. L2-3: Disc osteophyte formation and facet arthropathy with moderate right and minimal left neural for aminal narrowing. Triangulation of the central canal. L3-4: Disc osteophyte formation, facet arthropathy with triangulation of the central canal and mild to moderate right and mild left neural foraminal narrowing. L4-5: Disc osteophyte formation and facet arthropathy with minimal neural foraminal narrowing. L5-S1: Disc osteophyte formation and facet arthropathy with mild right and moderate left neural fora violeta narrowing. Paravertebral soft tissues unremarkable. Atherosclerotic calcifications present. Osteoarthritis of the sacroiliac joints present. Probable renal cysts. Possible left adnexal cyst on lowermost axial image 83. IMPRESSION: 1. No acute abnormality of the lumbar spine. 2. Multilevel degenerative changes as described. All CT scans are performed using dose optimization techniques as appropriate to the performed exam an d include at least one of the following: Automated exposure control, adjustment of the mA and/or kV according t o size, and the use of iterative reconstruction technique.
[2021-03-19] MEDS: HUMULIN R SUBCUT PRN ×3 (12:15→20:30)
[2021-03-19] MEDS: TYLENOL PO PRN ×2 (15:03→20:29)
--- NOTE | 2021-03-19 17:30 | PCM.PROG ---
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
--- NOTE | 2021-03-19 17:33 | PCM.PROG ---
Date Seen by Provider: 03/19/21 Time Seen by Provider: 17:32 Objective: Vitals: T=98.1 F, P=73, R=18, RB=974/78, SPO2=95 HEENT: [] Neck: [] Lungs: [] CVS: [] Abdomen: [] Extremities: [] Neurological: [] Skin: [] Lab/Tests/Diagnostic Imaging: [] Plan: care to Dr Mccullough at 19:00
[2021-03-19] MEDS: NAMENDA PO SCH (20:30)
[2021-03-20 04:30] LABS: BASOPHILS % (AUTO) 0.3 % (0.0-3.0); EOSINOPHILS # (AUTO) 0.2 K/ul (0.0-0.7); EOSINOPHILS % (AUTO) 1.9 % (0.0-7.0); HEMATOCRIT 37.2 % (37.0-47.0); HEMOGLOBIN 11.3 g/dl (12.0-16.0); IMMATURE GRANULOCYTE % (AUTO) 0.4 % (0.0-5.0); LYMPHOCYTES # (AUTO) 1.9 K/uL (0.60-3.4); LYMPHOCYTES % (AUTO) 21.8 (10.0-50.0); MEAN CORPUSCULAR HEMOGLOBIN 26.2 pg (27.0-31.0); MEAN CORPUSCULAR HGB CONC 30.4 (31.8-35.4); MEAN CORPUSCULAR VOLUME 86.3 fl (81.0-99.0); MONOCYTES # (AUTO) 0.8 K/uL (0.4-2.0); MONOCYTES % (AUTO) 8.7 (0-10); NEUTROPHILS # (AUTO) 5.9 K/ul (2.0-6.9); NEUTROPHILS % (AUTO) 66.9 % (42.2-75.2); PLATELET COUNT 241 10^3/uL (140-440); RDW COEFFICIENT OF VARIATION 14.6 % (11.6-14.8); RED BLOOD COUNT 4.31 10^6/ul (4.20-5.40); WHITE BLOOD COUNT 8.89 K/ul (4.6-10.2)
[2021-03-20 04:45] LABS: BLOOD UREA NITROGEN 37.2 mg/dL (7-17); CALCIUM 8.85 mg/dL (8.4-10.2); CARBON DIOXIDE 23.8 mmol/L (22-30.0); CHLORIDE 106.5 mmol/L (98-107); CREATININE 1.52 mg/dL (0.60-1.30); POTASSIUM 4.37 mmol/L (3.5-5.1); SODIUM 139.1 mmol/L (134.5-145)
[2021-03-20] MEDS: HUMULIN R SUBCUT PRN ×4 (06:15→21:26)
[2021-03-20] MEDS: COREG PO SCH ×2 (07:49→17:25)
[2021-03-20] MEDS: ASPIRIN CHEWABLE PO SCH (07:49)
[2021-03-20] MEDS: DEMADEX PO SCH (08:44)
[2021-03-20] MEDS: ROCEPHIN 1 GM/50 ML D5W 1 GM/50 ML BAG IV SCH (08:44)
[2021-03-20] MEDS: CRESTOR PO SCH (08:44)
[2021-03-20] MEDS: K-DUR PO SCH (08:44)
--- NOTE | 2021-03-20 08:56 | RS.PTINEVL ---
Subjective - Patient information Date of Evaluation: 03/19/21 Date of Arrival on Unit: 03/18/21 Admitted From:: Direct Admit Diagnosis: UTI, RLE pain Usual Living Arrangement: Personal Care Facility Home Environment: Apartment Medical History: Hypertension, CVA/TIA, Diabetes LATEX ALLERGY?: No Surgical History: Cholecystectomy, Hysterectomy Medications: see chart Subjective Information/ Patient Comments:: pt states that she suffered a fall while trying to transfer from recliner to w/c, states w/c must have been unlocked. The staff at [facility] helped her back up into her chair, however she was unable to put weight on her RLE. She states she hurts from her R knee down. - Level of function Prior to this admission, the patient could do the following:: Independent ADL's Abilities prior to this admission: pt transferred stand pivot bed to/from w/c to/from recliner independently. Current Level of Function: Dependent Current Equipment Used at Home: W/C, walkers Pain Assessement - Location RLE Description: Sharp, Aching Intensity: 10 Pain Behavior: Guarding, Facial Grimacing, Screaming Pain Aggravating Factors: Changing Position Pain Alleviating Factors: Medication, Inactivity Interventions - Objective Patient Orientation: Person, Place, Time, Situation Current Interventions: IV's, Telemetry Observation: pt lying suping in the bed with RLE ext rotated with knee flexed. edema noted BLE Range of Motion - ROM Right Upper Extremity AROM: Slight limitation (WFL's) Left Upper Extremity AROM: Slight limitation (WFL's) Right Lower Extremity AROM: Moderate limitation (Decreased R knee ext, decreased hip internal rotation,) Left Lower Extremity AROM: Slight limitation (decreased L knee ext) Muscle Strength - Muscle Strength Right Upper Extremity Strength: Mild Weakness (Shld flex 4-/5, elbow flex/ext 4/5) Left Upper Extremity Strength: Mild Weakness (Shld flex 4-/5, elbow flex/ext 4/5) Right Lower Extremity Strength: Severe Weakness (unable to MMT due to significant pain) Left Lower Extremity Strength: Mild Weakness (hip flex 4-/5, knee flex/ext 4/5, ankle DF/PF 4/5) Sensation - Sensation Right Upper Extremity Sensation: Intact/Normal Left Upper Extremity Sensation: Intact/Normal Right Lower Extremity Sensation: Impaired (tingling RLE) Left Lower Extremity Sensation: Intact/Normal Palpation Palpation Findings: Tenderness, Muscle Guarding Comments:: tenderness to palpation RLE Balance - Sitting Balance and Reactions Static Sitting Balance: Fair Dynamic Sitting Balance: Fair - Comments Balance Assessment Comments: pt unable to stand to assess standing balance. Functional Mobility - Bed Mobility Rolling R/L: Mod Assist, 1 person assist Scooting: Max Assist, 2 person assist Supine to Sit: Mod Assist, Max Assist, 2 person assist Sit to Supine: Max Assist, 2 person assist - Transfers Comments:: Attempted x 2 sit to stand, pt unable to stand yelling out in pain with RLE. Attempted with bed elevated and pt was unable to use UE to take weight off RLE. - Safety Awareness Safety Awareness: Fair BALDEV INDEX SCORE: n/a Treatment time - Time with patient Length of Evaluation: 22 Total treatment time: 28 Patient Education - Education Patient Education: Activity Modification, Education of Plan of Care Teaching Recipient: Patient Teaching Methods: Discussion Assessment - Assessment Problem List:: Decreased level of function, Requires training/education, Decreased safety/Risk of falls, Weakness, Pain limits previous level of function Rehab Potential: Fair Further Therapy Indicated?: Yes Candidate for Swing Bed for Therapy Services?: Feel pt may require LTC due to unable to tolerate bearing weight on RLE. Evaluation Complexity: HISTORY: Medium, EXAM OF BODY SYSTEMS: Medium, CLINICAL PRESENTATION: Medium, CLINICAL DECISION MAKING: Medium Patient's Goal(s): "I want to go back to my apartment" Short Term Goals GOAL #1: pt rolling in bed with bedrail min x 1, scooting in bed with min x 2 Goal to be met by: 03/22/21 GOAL #2: pt transfer sup to/from sit mod x 1 Goal to be met by: 03/22/21 GOAL #3: Transfer sit to/from stand mod x 2 Goal to be met by: 03/22/21 GOAL #4: Transfer bed to/from chair mod x 2 Goal to be met by: 03/22/21 GOAL #5: AAROM RLE WFL's Goal to be met by: 03/22/21 Sales Representative Education Courses Goals GOAL #1: pt able to roll and scoot in bed independently. Goal to be met by: 03/24/21 GOAL #2: Transfer sup to/from sit min x 1, sit to/from stand mod x 1 Goal to be met by: 03/24/21 GOAL #3: Transfer bed to/from chair mod x 1 Goal to be met by: 03/24/21 Plan Plan of Care: Therapeutic EX, Therapeutic Activity Frequency of Treatment: 1-2 X day, as tolerated Duration of Treatment: 5 days Anticipated Discharge Destination: undetermined at this time Treatment Diagnosis (ICD 10 Codes): impaired balance R 26.81. RLE pain. R knee joint stiffness. need for assist with personal care Z74.1. falls R 29.6 Has the Physician been added for Co-signature?: Yes
[2021-03-20] MEDS: PYRIDIUM PO SCH (11:42)
--- NOTE | 2021-03-20 11:52 | RS.OTINEVL ---
Subjective - Patient information Date of Evaluation: 03/20/21 Date of Arrival on Unit: 03/18/21 Diagnosis: UTI, HTN, Right Leg pain PRECAUTIONS: Pt is limited in standing and transfers. Usual Living Arrangement: Personal Care Facility Living Arrangement Comments: L[facility]ES AT [facility] Home Environment: Apartment Medical History: Hypertension, CVA/TIA, Diabetes Medical History Comments:: Glaucoma, falls, dizzy, alzheimers, kidney disease, gall bladder, hysterectomy, HTN, hypercholesterolemia, DMII LATEX ALLERGY?: No Surgical History: Cholecystectomy, Hysterectomy Medications: see chart Subjective Information/ Patient Comments:: Pt reports she fell trying to transfer to the toilet. - Level of function Prior to this admission, the patient could do the following:: Independent ADL's Abilities prior to this admission: Pt was independent with showering, dressing except for her feet. Current Level of Function: Partially Dependent Comments: Pt reported too much pain in BLE with 2 people trying to help her stand. Current Equipment Used at Home: W/C, walkers Pain Assessment - Pain Pain Score: 8 Side: bilateral Pain Aggravating Factors: Standing Pain Alleviating Factors: Sitting, Lying Supine (Pt reported that her legs were hurting too much to stand on them. When lying in bed pt reported pain 0/10.) Interventions - Objective Patient Orientation: Person, Situation Current Interventions: IV's, Oxygen (Chart indicated Alzheimers disease.), Telemetry Observation: Pt has limited AROM BUE shoulder flexion. PROM or shoulder flexion is more WFL. Pt has strength of 3-/5. Pt was able to get to sitting position at EOB CGA. Pt has pain in BLE and limited in use of legs. Interventions - ROM Right Upper Extremity AROM: WFL's Left Upper Extremity AROM: Slight limitation - Strength Right Upper Extremity Strength: Mild Weakness Left Upper Extremity Strength: Mild Weakness - Sensation Right Upper Extremity Sensation: Intact/Normal Left Upper Extremity Sensation: Intact/Normal Balance - Sitting Balance Static Sitting Balance: Fair Dynamic Sitting Balance: Fair - Standing Balance Static Standing Balance: Poor Dynamic Standing Balance: Poor ADL Skills - Self Feeding Self Feeding: Independent - Grooming Grooming: CGA - Bathing Bathing UE: CGA Bathing LE: Max Assist Bathing Set-up: Bedside - Dressing Dressing UE: CGA Dressing LE: Max Assist - Toilet Management Toilet Hygiene: Max Assist Toilet Clothing Management: Max Assist Functional Mobility - Bed Mobility Rolling R/L: Independent Supine to Sit: CGA Sit to Supine: Mod Assist - Transfers Comments:: PT attempted with 2 people to stand patient EOB with RW and patient reported too much pain in BLE. - Ambulation Weight Bearing Status: FWB Assistive Device Used: Rolling Walker - Safety Awareness Safety Awareness: Fair BALDEV INDEX SCORE: . Additional Treatment Performed - Time with patient Length of Evaluation: 20 Total treatment time: 20 Assessment Problem List:: Decreased level of function, Requires training/education, Decreased safety/Risk of falls, Weakness, Pain limits previous level of function Rehab Potential: Good Further Therapy Indicated?: Yes Evaluation Complexity: HISTORY: Medium, EXAM OF BODY SYSTEMS: Medium, CLINICAL DECISION MAKING: Medium Patient's Goal(s): To be able to stand and transfer to the toilet. Short Term Goals - Goals GOAL 1: Pt to increase dyn. std. balance to F-. Goal to be met by: 03/27/21 GOAL 2: Pt to increase BUE strenght to 4+/5. Goal to be met by: 03/27/21 GOAL 3: Pt to increase toilet transfers to Min A. Goal to be met by: 03/27/21 Progress towards goal: Partially Met GOAL 4: Pt to be independent with home exercise program. Goal to be met by: 03/27/21 Shelter Goals GOAL 1: Pt to complete toilet transfers with CGA. Goal to be met by: 04/03/21 GOAL 2: Pt to increase independence of ADLS to Return to PLOF. Goal to be met by: 04/03/21 GOAL 3: Pt to increase dyn. Std. bal. to Fair with RW. Goal to be met by: 04/03/21 Plan Plan of Care: Therapeutic EX, Therapeutic Activity, Self-Care/Home Management Frequency of Treatment: 1-2 X day, as tolerated Duration of Treatment: 2 Weeks Anticipated Discharge Destination: Assisted Living Facility Treatment Diagnosis (ICD 10 Codes): Weakness R53.1, Z74.1 Need for assistance with personal care. Has the Physician been added for Co-signature?: Yes
--- NOTE | 2021-03-20 14:25 | US ---
EXAM: Right lower extremity venous doppler. HISTORY: Right leg pain and swelling. COMPARISON: None. TECHNIQUE: A duplex Doppler study was performed consisting of integrated two dimensional (2D) real-t patrick imaging color flow Doppler and Doppler spectral analysis utilizing linear array probes. FINDINGS: There is normal flow, venous waveforms, compressibility and augmentation of flow within th e right common femoral, greater saphenous, profunda, femoral, popliteal, posterior tibial, and perone al veins. Right anterior tibial vein not seen. Subcutaneous edema is seen near this level. IMPRESSION: No evidence for right lower extremity deep vein thrombosis at the levels examined.
--- NOTE | 2021-03-20 17:54 | PCM.PROG ---
Date Seen by Provider: 03/20/21 Time Seen by Provider: 07:19 Subjective: pt improving, still unsteady due to right leg pain, vss, +ddimer and right lower extremity negative for dvt per Rad, pt denies chest pain or shortness of breath Objective: Vitals: T=99.9 F, P=76, R=20, DN=862/75, SPO2=97 HEENT: [] Neck: [] Lungs: [] CVS: [] Abdomen: [] Extremities: [] Neurological: [] Skin: [] Lab/Tests/Diagnostic Imaging: [] Plan: continue iv rocephin, PT to determine possibility of ambulatory independence and return to assisted living, will reassess tomorrow care to Dr Mccullough at 19:00
[2021-03-20] MEDS: SODIUM CHLORIDE 1,000 ML IV SCH (18:26)
[2021-03-20] MEDS: NAMENDA PO SCH (21:25)
[2021-03-21] MEDS: SODIUM CHLORIDE 1,000 ML IV SCH ×3 (02:25→23:42)
[2021-03-21] MEDS: TYLENOL PO PRN ×3 (03:38→22:09)
[2021-03-21] MEDS: DEMADEX PO SCH (08:01)
[2021-03-21] MEDS: CRESTOR PO SCH (08:01)
[2021-03-21] MEDS: ASPIRIN CHEWABLE PO SCH (08:01)
[2021-03-21] MEDS: COREG PO SCH ×2 (08:01→16:48)
[2021-03-21] MEDS: PYRIDIUM PO SCH (08:01)
[2021-03-21] MEDS: ROCEPHIN 1 GM/50 ML D5W 1 GM/50 ML BAG IV SCH (08:05)
--- NOTE | 2021-03-21 08:40 | PCM.PROG ---
Date Seen by Provider: 03/21/21 Time Seen by Provider: 08:15 Subjective: I am feeling better. States plans discharge to [facility] for PT Rehab then going home to live with her Daughter and granddaugter Objective: Vitals: T=98.6 F, P=67, R=18, BO=428/66, SPO2=94 HEENT: Clear Neck: Supple non tender Lungs: CTA-AF CVS: HR RRR w/o murmur Abdomen: Soft non tender Extremities: Neg Clubing, Cyanosis or edema Neurological: Grossly normal Skin: NOrmal MS: Rt Thigh edematous and painful-leg appears rotated and shortened. Lab/Tests/Diagnostic Imaging see chart Imaging Rt Tibia-fibula:No fracture or dislocation. 2. Osteoarthritis of the knee. 3. Calcaneal spurring. 4. Subcutaneous edema suggested. Lumbar Spine CT: No acute abnormality of the lumbar spine. 2. Multilevel degenerative changes as described. (1) Acute UTI: Status: Acute Code(s): N39.0 - Urinary tract infection, site not specified SNOMED Code(s): 476985452 (2) Elevated d-dimer: Status: Acute Code(s): R79.89 - Other specified abnormal findings of blood chemistry SNOMED Code(s): 253306723 Assessment: R/O DVT /PE (3) Inability to walk: Status: Acute Code(s): R26.2 - Difficulty in walking, not elsewhere classified SNOMED Code(s): 614042430 (4) Neuropathy: Status: Acute Code(s): G62.9 - Polyneuropathy, unspecified SNOMED Code(s): 297424553 Plan: Discussed treatment plan. Arranged through Radiology for nuclear [facility] pulmonary scan to be obtained and to initiate Lovenox Discussed with Dr Clemens.
[2021-03-21] MEDS ORDERED: LOVENOX SUBCUT ONE (11:58)
[2021-03-21] MEDS ORDERED: LOVENOX SUBCUT STA (12:03)
[2021-03-21] MEDS: NYSTOP POWDER TP SCH ×2 (12:11→21:20)
[2021-03-21] MEDS: HUMULIN R SUBCUT PRN ×3 (12:12→20:37)
--- NOTE | 2021-03-21 19:24 | PCM.PROG ---
Date Seen by Provider: 03/21/21 Time Seen by Provider: 08:10 Subjective: Patient feeling well. No new complaints..Denies new complaints of pain in her legs. Denies shortness of breath or chest pain. Diagnostic lab studies today reveals patient CK of 68.3. A D Dimer was ordered yesterday by Dr Clemens Which was elevated to 2134.26 Dr Clemens called me today to discuss this test result. Patient's renal function prevents us from doing a Chest C T PE protocol. Will contact radiology a nuclear medicine to schedule a Pulmonary VEntilation Perfusion scan Which will be performed in the a.m. by nuclear medicine. Objective: Vitals: T=98.5 F, P=78, R=18, JS=219/79, SPO2=96 HEENT: Clear Neck: Supple Lungs:CTA CVS: S1S2 Abdomen: soft non tender] Extremities: minimal edema Neurological: AAOX3 Grosssly normal Lab/Tests/Diagnostic Imaging: See Chart (1) Acute UTI: Status: Acute Code(s): N39.0 - Urinary tract infection, site not specified SNOMED Code(s): 253968847 (2) Weakness generalized: Status: Acute Code(s): R53.1 - Weakness SNOMED Code(s): 12828483 (3) Neuropathy: Status: Acute Code(s): G62.9 - Polyneuropathy, unspecified SNOMED Code(s): 701264189 (4) Inability to walk: Status: Acute Code(s): R26.2 - Difficulty in walking, not elsewhere classified SNOMED Code(s): 541011254 (5) Elevated d-dimer: Status: Acute Code(s): R79.89 - Other specified abnormal findings of blood chemistry SNOMED Code(s): 317276710 Assessment: Schedule Nuc med VQ scan- can obtain in AM Plan: Await results current testing/Anticipated Discharge to [facility] for PT then [facility] home with her daughter
[2021-03-21] MEDS: NAMENDA PO SCH (21:18)
[2021-03-22] MEDS: SODIUM CHLORIDE 1,000 ML IV SCH (00:45)
[2021-03-22] MEDS: HUMULIN R SUBCUT PRN ×2 (06:45→11:00)
[2021-03-22] MEDS: K-DUR PO SCH (08:21)
[2021-03-22] MEDS: DEMADEX PO SCH (08:21)
[2021-03-22] MEDS: COREG PO SCH (08:22)
[2021-03-22] MEDS: ASPIRIN CHEWABLE PO SCH (08:22)
[2021-03-22] MEDS: PYRIDIUM PO SCH (08:22)
[2021-03-22] MEDS: CRESTOR PO SCH (08:23)
[2021-03-22] MEDS: NYSTOP POWDER TP SCH (08:24)
[2021-03-22] MEDS ORDERED: KEFLEX PO SCH (09:00)
--- NOTE | 2021-03-22 10:48 | DI ---
EXAM: Chest one view, frontal view only. HISTORY: Shortness of breath. COMPARISON: 04/14/2019. FINDINGS: The heart size is normal. There is no pulmonary vascular congestion. The lungs are clear . No pleural effusion or pneumothorax is seen. No acute osseous abnormality is identified. Since t he prior study, there has been no significant interval change. IMPRESSION: No acute cardiopulmonary process.
--- NOTE | 2021-03-22 11:11 | NM ---
EXAM: Perfusion lung scan HISTORY: Elevated D-dimer. COMPARISON: None of this type. Chest x-ray 03/22/2021. PROCEDURE: Ventilation: This portion of the standard examination was not performed. Perfusion: The patient was injected with 5.4 mCi mCi of 99 technetium MAA intravenously after which anterior, posterior , lateral and anterior and posterior oblique images were obtained. FINDINGS: The perfusion images demonstrate relatively uniform distribution of activity within the keesha g hughes. Particular no specific segmental or subsegmental perfusion defects typical pulmonary embol us are identified. IMPRESSION: Low probability of pulmonary embolus. Results faxed to the department for transmission to the patient's nurse/physician at 11:04 a.m.
--- NOTE | 2021-03-22 12:43 | PCM.DC ---
Final Diagnosis: deconditioning and lower extremities pain (1) Acute UTI: Status: Acute Code(s): N39.0 - Urinary tract infection, site not specified SNOMED Code(s): 523526422 (2) Elevated d-dimer: Status: Acute Code(s): R79.89 - Other specified abnormal findings of blood chemistry SNOMED Code(s): 522856609 (3) Inability to walk: Status: Acute Code(s): R26.2 - Difficulty in walking, not elsewhere classified SNOMED Code(s): 081605232 (4) Neuropathy: Status: Acute Code(s): G62.9 - Polyneuropathy, unspecified SNOMED Code(s): 224264271 Reason for Hospitalization: unable to ambulate Prognosis at Discharge: fair Condition at Discharge: stable Medications at Discharge: Ambulatory Orders Medication Instructions Recorded blood glucose control, normal #1 bx 07/09/18 (OneTouch Ultra Control) blood sugar diagnostic (Blood #1 bx 07/12/18 Glucose Test) rosuvastatin 20 mg tablet 20 mg PO DAILY 90 Days #90 tab-cap 08/03/18 pen needle, diabetic 29 gauge x #100 ea 09/24/18 1/2" (BD Ultra-Fine Original Pen Needle) lancets 30 gauge (OneTouch Delica #100 ea 10/13/18 Lancets) blood-glucose meter (True Metrix #1 ea 12/09/18 Glucose Meter) rivastigmine 9.5 mg/24 hour 1 ea TRANSDERMAL DAILY LAB #30 03/21/19 transdermal patch (Exelon Patch) patch acetaminophen 325 mg tablet 650 mg PO QID PRN 03/15/21 (Tylenol) aspirin 81 mg tablet 81 mg PO DAILY 03/15/21 carvedilol 6.25 mg tablet 6.25 mg PO BID 03/15/21 insulin detemir U-100 100 unit/mL 50 unit SQ DAILY 03/15/21 (3 mL) subcutaneous pen (Levemir FlexTouch U-100 Insulin) insulin lispro 100 unit/mL 8 unit SUBCUT TIDWM 03/15/21 subcutaneous pen (Humalog KwikPen (U-100) Insulin) memantine 10 mg tablet (Namenda) 10 mg PO BEDTIME 03/15/21 ondansetron HCl 4 mg tablet 4 mg PO Q8H #14 tab 03/15/21 (Zofran) ondansetron HCl 4 mg tablet 4 mg PO Q8H #14 tab 03/15/21 (Zofran) potassium chloride 20 mEq 20 meq PO EVERY OTHER DAY 03/15/21 tablet,extended release(part/cryst) torsemide 20 mg tablet 20 mg PO DAILY 03/15/21 Lab/Diagnostics: vq scan per Rad low probability of PE Education Provided to Patient and Family: guard against falling Follow-ups: Dr Brannon Discharge Disposition: [facility] Course: improved Plan: discharge to [facility] Dr Brannon
[2021-03-22 14:00] VITALS: BP 162/82; TEMP 98.5
== END 2021-03-22 14:05 | DRG 74 ==
LOC: ED 13:06 → MEDSURG A 17:19
PROVIDERS: ADMIT Family Medicine Addiction Medicine; ATTEND Emergency Medicine Emergency Medical Services
DX: R53.1 Weakness; R26.2 Difficulty in walking, not elsewhere classified; N39.0 Urinary tract infection, site not specified; R79.1 Abnormal coagulation profile; G62.9 Polyneuropathy, unspecified